=== PATIENT | female | born 2000 | race Caucasian/White ===

== ENCOUNTER 2020-01-26 03:46 | Emergency (ER) | payer SELFPAY ==
[2020-01-26] MEDS ORDERED: Diphtheria,Pertussis(Acell),Tetanus Vaccine 0.5 ML Syringe IM ONE (04:07)
[2020-01-26] MEDS ORDERED: Lidocaine 1% 10 ML MDV INJECT ONE (04:07)
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
[2020-01-26] MEDS ORDERED: Bacitracin Oint 1 GM U/D Packet TOP ONE (04:54)
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
--- NOTE | 2020-01-26 05:41 | CR ---
Indication: Foreign body removal Technique: Frontal and lateral views left forearm Comparison: Same date at 4:14 a.m. Findings/Impression: : No residual foreign body identified. Soft tissue disruption along the midforearm again noted. Osseous structures intact. Dictated by Ashley Canales MD @ Jan 26 2020 5:40AM Signed by Dr. Ashley Canales @ Jan 26 2020 5:41AM
[2020-01-26 05:51] VITALS: BP 128/66; PULSE 108
== END 2020-01-26 05:40 | disposition home or self-care (01) ==
LOC: MW.ED 03:46
DX: S62.316A Displaced fracture of base of fifth metacarpal bone, right hand, initial encounter for closed fracture (principal); S51.822A Laceration with foreign body of left forearm, initial encounter; F17.210 Nicotine dependence, cigarettes, uncomplicated; Z23 Encounter for immunization; W22.8XXA Striking against or struck by other objects, initial encounter
CPT/HCPCS: 12032; 29125; 73090; 73130; 90471; 90715; 99283; J2001; 12002; 99282

== ENCOUNTER 2023-03-03 00:13 | Inpatient (IN) | payer MEDICAID ==
[2023-03-03] MEDS ORDERED: Sodium Chloride 0.9% 10 ML Syringe FLUSH PRN (00:41)
[2023-03-03] MEDS ORDERED: Water For Irrigation,Sterile 1,000 ML Container IRR PRN (00:41)
[2023-03-03] MEDS ORDERED: Carboprost Tromethamine 250 MCG/1 mL Vial IM PRN (00:41)
[2023-03-03] MEDS ORDERED: Ondansetron 4 MG/2 ML SDV IVPUSH PRN (00:41)
[2023-03-03] MEDS ORDERED: Sodium Chloride 0.9% 2.5 ML Syringe FLUSH PRN (00:41)
[2023-03-03] MEDS ORDERED: Sodium Chloride 0.9% 20 ML SDV IV PRN (00:41)
[2023-03-03] MEDS ORDERED: Terbutaline 1 MG/ML SDV SUBCUT PRN (00:41)
[2023-03-03] MEDS ORDERED: Misoprostol 200 MCG Tab PO PRN (00:41)
[2023-03-03] MEDS ORDERED: Methylergonovine 0.2 MG/1 ML Amp IM PRN (00:41)
[2023-03-03] MEDS ORDERED: Lidocaine 1% 50 ML MDV INJECT PRN (00:41)
[2023-03-03] MEDS ORDERED: Tranexamic Acid 1,000 MG in Sodium Chloride 0.9% 100 ML IV PRN (00:41)
[2023-03-03] MEDS ORDERED: Butorphanol 1 MG/ML SDV IVPUSH PRN (00:41)
[2023-03-03] MEDS ORDERED: Oxytocin/0.9 % Sodium Chloride 30 UNIT/500 ML BAG IV SCH ×2 (00:45)
[2023-03-03 02:09] LABS: HEMATOCRIT 33.2 % (36.0-46.0); HEMOGLOBIN 11.2 g/dL (12.0-16.0); MEAN CORPUSCULAR HEMOGLOBIN 28.9 pg (27.0-32.0); MEAN CORPUSCULAR HGB CONC 33.7 g/dL (31.0-37.0); MEAN CORPUSCULAR VOLUME 85.6 fL (80.0-98.0); PLATELET COUNT,PLT 224 K/uL (150-400); RED BLOOD CELL COUNT 3.88 M/uL (4.30-5.90); WHITE BLOOD CELL COUNT,WBC 13.12 K/uL (4.0-11.0)
[2023-03-03] MEDS: Lactated Ringers 1,000 ML IV SCH ×2 (02:33→08:15)
[2023-03-03] MEDS: Misoprostol 25 MCG (1/4 of 100 MCG) Tab VAG PRN ×2 (02:33→07:32)
[2023-03-03] MEDS ORDERED: Calcium Carbonate 500 MG Tab.Chew PO PRN (05:08)
[2023-03-03] MEDS ORDERED: Bupivacaine 0.5% 10 ML SDV ONE (12:33)
[2023-03-03] MEDS ORDERED: Ropivacaine/PF 400 MG/200 ML PCA ONE (12:33)
[2023-03-03] MEDS ORDERED: ePHEDrine 50 MG/ML SDV IVPUSH PRN ×2 (12:57)
[2023-03-03] MEDS ORDERED: Phenylephrine HCl 0.5 MG/5 ML AMP IVPUSH PRN (12:57)
[2023-03-03] MEDS ORDERED: Ropivacaine HCl/PF 400 MG in Premix Bag 1 BAG EPIDUR SCH (13:00)
[2023-03-03] MEDS ORDERED: Bisacodyl 10 MG Supp RECTAL PRN (15:21)
[2023-03-03] MEDS ORDERED: Ibuprofen 400 MG Tab PO PRN (15:21)
[2023-03-03] MEDS ORDERED: Docusate Sodium 100 MG Cap PO PRN (15:21)
[2023-03-03] MEDS ORDERED: Benzocaine/Menthol 20%-0.5% Spray 78 GM Cannister TOP PRN (15:21)
[2023-03-03] MEDS ORDERED: Lanolin 100% Cream 7 GM Tube TOP PRN (15:21)
[2023-03-03] MEDS ORDERED: Witch Hazel Medicated Pads 40/Jar TOP PRN (15:21)
[2023-03-03] MEDS ORDERED: Acetaminophen 500 MG Tab PO PRN (15:21)
[2023-03-03] MEDS ORDERED: Ibuprofen 800 MG Tab PO PRN (15:21)
[2023-03-03 15:43] LABS: PH,UMBILICAL ARTERIAL 7.284 (7.18-7.38); PH,UMBILICAL VENOUS 7.343 (7.25-7.45)
[2023-03-03] MEDS: Acetaminophen 500 MG Tab PO PRN (18:34)
[2023-03-04] MEDS: Acetaminophen 500 MG Tab PO PRN (03:17)
[2023-03-04 05:43] LABS: HEMATOCRIT 31.2 % (36.0-46.0); HEMOGLOBIN 10.5 g/dL (12.0-16.0)
[2023-03-04 16:12] VITALS: BP 138/87; PULSE 65
== END 2023-03-04 17:40 | disposition home or self-care (01) | DRG 806 ==
LOC: MW.OBCHECK 00:13 → MW.OB 00:14 → MW.OBCHECK 01:06 → OBSVTOIN 15:04 → MW.OB 20:16
PROVIDERS: ADMIT Obstetrics & Gynecology; ATTEND Obstetrics & Gynecology
PROC: 10E0XZZ Delivery of Products of Conception, External Approach (ICD-10-PCS; principal; 2023-03-03)
PROC: 3E0P7VZ Introduction of Hormone into Female Reproductive, Via Natural or Artificial Opening (ICD-10-PCS; 2023-03-03)
PROC: 3E033VJ Introduction of Other Hormone into Peripheral Vein, Percutaneous Approach (ICD-10-PCS; 2023-03-03)
PROC: 3E0R3BZ Introduction of Anesthetic Agent into Spinal Canal, Percutaneous Approach (ICD-10-PCS; 2023-03-03)
PROC: 00HU33Z Insertion of Infusion Device into Spinal Canal, Percutaneous Approach (ICD-10-PCS; 2023-03-03)
PROC: 3E0234Z Introduction of Serum, Toxoid and Vaccine into Muscle, Percutaneous Approach (ICD-10-PCS; 2023-03-03)
DX: O48.0 Post-term pregnancy (principal); O98.32 Other infections with a predominantly sexual mode of transmission complicating childbirth; Z37.0 Single live birth; Z3A.40 40 weeks gestation of pregnancy; A60.09 Herpesviral infection of other urogenital tract; O26.893 Other specified pregnancy related conditions, third trimester; Z87.891 Personal history of nicotine dependence; Z67.41 Type O blood, Rh negative
CPT/HCPCS: 36415; 36430; 51702; 59025; 59409; 82803; 85014; 85018; 85027; 85460; 86592; 86850; 86900; 86901; A9270-GY; J0595; J2590; J2790; J2795; J3490; J7120

== ENCOUNTER 2025-09-01 21:52 | Inpatient (IN) | payer MEDICAID ==
[2025-09-01] MEDS ORDERED: Terbutaline 1 MG/ML SDV SUBCUT PRN (23:17)
[2025-09-01] MEDS ORDERED: Butorphanol 1 MG/ML SDV IVPUSH PRN (23:17)
[2025-09-01] MEDS ORDERED: Carboprost Tromethamine 250 MCG/1 mL Vial IM PRN (23:17)
[2025-09-01] MEDS ORDERED: Sodium Chloride 0.9% 10 ML Syringe FLUSH PRN (23:17)
[2025-09-01] MEDS ORDERED: Ondansetron 4 MG/2 ML SDV IVPUSH PRN (23:17)
[2025-09-01] MEDS ORDERED: Water For Irrigation,Sterile 1,000 ML Container IRR PRN (23:17)
[2025-09-01] MEDS ORDERED: Sodium Chloride 0.9% 2.5 ML Syringe FLUSH PRN (23:17)
[2025-09-01 23:48] LABS: MEAN PLATELET VOLUME 10.8 fL (9.4-12.3); NRBC ABSOLUTE 0.00 K/uL (0.00-0.02); NRBC PERCENT 0.0 /100WBC (0.0-0.2); PLATELET COUNT,PLT 229 K/uL (150-400); RED BLOOD CELL COUNT 4.36 M/uL (4.10-5.30); WHITE BLOOD CELL COUNT,WBC 9.04 K/uL (3.9-11.3)
[2025-09-01] MEDS: Misoprostol 25 MCG (1/4 of 100 MCG) Tab VAG PRN (23:51)
[2025-09-02 00:16] LABS: A/G RATIO 0.9 (0.9-1.6); ALANINE AMINOTRANSFERASE,ALT 22 IU/L (14-63); ASPARTATE AMNIOTRANSFERASE,AST 15 IU/L (15-37); BILIRUBIN TOTAL 0.4 mg/dL (0.2-1.0); BLOOD UREA NITROGEN,BUN 11 mg/dL (7.0-18.0); CARBON DIOXIDE,CO2 22.9 mmol/L (21.0-32.0); CHLORIDE,CL 104 mmol/L (98-107); CREATININE 0.6 mg/dL (0.6-1.0); GLUCOSE RANDOM 81 mg/dL (74-106); POTASSIUM,K 3.9 mmol/L (3.5-5.1); PROTEIN TOTAL,TP 6.3 g/dL (6.4-8.2); SODIUM,NA 138 mmol/L (136-145)
[2025-09-02 00:18] LABS: ESTIMATED GFR 128 mL/min (>60)
[2025-09-02 01:22] LABS: CREATININE,URINE RAND 86.6 mg/dL; PROTEIN CREATININE RATIO,URINE 0.2; PROTEIN,URINE RANDOM 16.6 mg/dL (<11.9)
[2025-09-02] MEDS: Oxytocin/0.9 % Sodium Chloride 30 UNIT/500 ML BAG IV SCH ×2 (11:30→13:48)
[2025-09-02] MEDS: Lactated Ringers 1,000 ML IV SCH (11:30)
[2025-09-02] MEDS ORDERED: Lanolin 100% Cream 7 GM Tube TOP PRN (13:59)
[2025-09-02] MEDS ORDERED: Measles, Mumps & Rubella Vaccine 0.5 ML SDV SUBCUT ONE (13:59)
[2025-09-02 14:28] LABS: PH,UMBILICAL ARTERIAL 7.47 (7.18-7.38)
[2025-09-02 14:29] LABS: PH,UMBILICAL VENOUS 7.46 (7.25-7.45)
[2025-09-02] MEDS: Benzocaine/Menthol 20%-0.5% Spray 78 GM Cannister TOP PRN (14:35)
[2025-09-02] MEDS: Witch Hazel Medicated Pads 40/Jar TOP PRN (14:35)
[2025-09-03 17:15] VITALS: BP 120/64; PULSE 80
== END 2025-09-03 18:14 | disposition home or self-care (01) | DRG 806 ==
LOC: OBSVTOIN 21:52 → MW.OB 21:52
PROVIDERS: ADMIT Obstetrics & Gynecology; ATTEND Obstetrics & Gynecology
PROC: 10E0XZZ Delivery of Products of Conception, External Approach (ICD-10-PCS; principal; 2025-09-01)
PROC: 3E0234Z Introduction of Serum, Toxoid and Vaccine into Muscle, Percutaneous Approach (ICD-10-PCS; 2025-09-01)
PROC: 3E0334Z Introduction of Serum, Toxoid and Vaccine into Peripheral Vein, Percutaneous Approach (ICD-10-PCS; 2025-09-01)
PROC: 3E033VJ Introduction of Other Hormone into Peripheral Vein, Percutaneous Approach (ICD-10-PCS; 2025-09-01)
PROC: 30233N1 Transfusion of Nonautologous Red Blood Cells into Peripheral Vein, Percutaneous Approach (ICD-10-PCS; 2025-09-01)
DX: O48.0 Post-term pregnancy (principal); O98.32 Other infections with a predominantly sexual mode of transmission complicating childbirth; O99.52 Diseases of the respiratory system complicating childbirth; J45.909 Unspecified asthma, uncomplicated; O99.824 Streptococcus B carrier state complicating childbirth; O99.214 Obesity complicating childbirth; Z37.0 Single live birth; Z3A.40 40 weeks gestation of pregnancy; Z23 Encounter for immunization
CPT/HCPCS: 36415; 59025; 59409; 76815; 76815-26; 80053; 82570; 82803; 84156; 85014; 85018; 85027; 85460; 86592; 86850; 86900; 86901; A9270-GY; J2590; J2791; J7120